=== PATIENT | female | born 1960 | race Caucasian/White ===

== ENCOUNTER → 2017-03-30 | Outpatient (CLI) | payer MEDICARE ==
[~2017-03-30] MED LIST: CEPHALEXIN500 M1 PO; CLEOCIN HC150 MG/CAP PO; DIFLUCAN200 MG PO; DOXYCYCLINE 10100 MG PO; FLAGYL500 MG PO; HEPARIN LOCK F1 U/ML IV; LEVAQUIN 5500 MG/TA1 PO; LEVAQUIN 7750 MG/151 IV; MAGNESIUM ELEME30 MG PO; NO HOME MEDICATIONS; NORCO 325 MG-51 TAB PO; NORMAL SALINE FL5 ML IV; ROXICODONE 55 MG/TAB PO; TEFLARO 60600 MG/VIA IV; VITAMIN D1000 IU PO; [UNRECOGNIZED DRUG - OTHER] TP
== END ==
LOC: MC.RAD 10:20
DX: Z12.31 Encounter for screening mammogram for malignant neoplasm of breast (principal)

== ENCOUNTER → 2017-06-09 | Outpatient (CLI) | payer MEDICARE | LOC: COL.RAD 09:51 | DX: K43.9 Ventral hernia without obstruction or gangrene (principal); K80.20 Calculus of gallbladder without cholecystitis without obstruction; R60.0 Localized edema; R16.1 Splenomegaly, not elsewhere classified | CPT/HCPCS: J7050; Q9967 ==

== ENCOUNTER → 2018-02-11 | Outpatient (CLI) | payer MEDICARE | LOC: COL.RAD 07:19 | DX: J84.10 Pulmonary fibrosis, unspecified (principal); R91.1 Solitary pulmonary nodule | CPT/HCPCS: Q9967 ==

== ENCOUNTER → 2018-03-03 | Outpatient (CLI) | payer MEDICARE | LOC: COL.PUL 07:57 | DX: J84.10 Pulmonary fibrosis, unspecified (principal); R09.02 Hypoxemia ==

== ENCOUNTER 2018-08-17 12:45 | Outpatient (RCR) | payer MEDICARE | END 2018-10-13 | disposition still patient (30) | LOC: WSPT | DX: L03.115 Cellulitis of right lower limb (principal); R53.1 Weakness; R29.898 Other symptoms and signs involving the musculoskeletal system ==

== ENCOUNTER → 2019-01-18 | Outpatient (CLI) | payer MEDICARE | LOC: COL.PUL 07:54 | DX: J84.10 Pulmonary fibrosis, unspecified (principal); R06.09 Other forms of dyspnea ==

== ENCOUNTER → 2019-03-07 | Outpatient (CLI) | payer MEDICARE | LOC: COL.PUL 09:33 | DX: J98.4 Other disorders of lung (principal) | CPT/HCPCS: J7674 ==